=== PATIENT | female | born 1955 | race Caucasian/White ===

== ENCOUNTER 2019-10-24 10:52 | Outpatient (REF) | payer OTHER, SELFPAY ==
--- NOTE | 2019-10-24 09:20 | PAPFT_PTH ---
PATIENT: Colleen Johnson I LOC: [facility] U#:[id number] AGE/SX: 64/F ROOM: RE10/24/[address]: Raquel Bolanos : 1955 BED: DIS: 10/24/2019 SPEC #: [id number] RECD: 10/25/19 12:23 STATUS: YANIQUE REStella #: [id number] SALMA: 10/24/19 09:[address]: Raquel Bolanos DEPT: [facility] Cytology RECD BY: Kamini Vernon ENTERED: 10/25/19 12:24 SP TYPE: PAPFT OTHR DR: Lisa Ta Tissues: 1 - CX/ENDOCX FOR PAP SMEARS Procedures: PAP THIN PREP/[facility] Screening HPV DNA PROBE Comments: [id number]
[2019-10-24 21:32] LABS: Calculated LDL 130 mg/dL (<100); Cholesterol 218 mg/dL (<200); HDL Cholesterol 56 mg/dL (40-60); Triglyceride 160 mg/dL (<150)
== END 2019-10-24 11:12 ==
LOC: NCHCN 10:52
PROVIDERS: PCP Nurse Practitioner Adult Health; Visit Provider Nurse Practitioner Community Health
DX: R63.5 Abnormal weight gain (principal); R53.83 Other fatigue; Z12.4 Encounter for screening for malignant neoplasm of cervix
CPT/HCPCS: 80061; 88142; 84443; 87624

== ENCOUNTER 2021-04-08 12:38 | Outpatient (REF) | payer OTHER, SELFPAY ==
[2021-04-08 21:45] LABS: Abs Immature Grans 0.02 10^3/uL (0.0-0.06); Absolute Basophil Count 0.04 10^3/uL (0.0-0.2); Absolute Eosinophil Count 0.17 10^3/uL (0.0-0.7); Absolute Lymphocyte Count 2.42 10^3/uL (1.2-3.4); Basophils % 0.6; Eosinophils % 2.5; HCT 40.5 % (36.0-46.0); HGB 13.4 g/dL (11.2-15.7); Immature Grans % 0.3; Lymphocytes % 35.3; MCH 31.5 pg (27.0-33.0); MCHC 33.1 % (32.0-36.0); MCV 95.3 fL (80-95); MPV 12.1 fL (8.0-11.0); Monocytes % 5.8; Neutrophils % 55.5; Nucleated RBC 0 %; Platelet Count 244 10^3/uL (130-400); RBC 4.25 10^6/uL (3.93-5.22); RDW 11.9 % (11.7-14.6); RDW-SD 41.2 fL; WBC 6.85 10^3/uL (4.4-10.8)
[2021-04-08 21:57] LABS: ALT 30 U/L (14-59); AST 21 U/L (15-37); Alkaline Phosphatase 88 U/L (46-116); BUN 14 mg/dL (7-18); Bilirubin, Total 0.4 mg/dL (0.2-1.0); CREATININE 0.7 mg/dL (0.55-1.02); Calcium 8.9 mg/dL (8.5-10.1); Chloride 108 mmol/L (98-107); Glucose 93 mg/dL (74-106); Potassium 4.1 mmol/L (3.5-5.1); Sodium 144 mmol/L (136-145)
== END 2021-04-08 12:39 | disposition home or self-care (01) ==
LOC: NCHCN 12:38
PROVIDERS: PCP Nurse Practitioner Adult Health; Visit Provider Nurse Practitioner Community Health
DX: R79.89 Other specified abnormal findings of blood chemistry (principal); L53.8 Other specified erythematous conditions
CPT/HCPCS: 80053; 80061; 81015; 85025

== ENCOUNTER 2024-09-12 14:05 | Outpatient (REF) | payer MEDICARE, SELFPAY ==
[2024-09-12 21:49] LABS: ALT 30 U/L (14-59); AST 20 U/L (15-37); Albumin 3.9 g/dL (3.4-5.0); Alkaline Phosphatase 88 U/L (46-116); Anion Gap 8.6 mmol/L (3-11); BUN 16 mg/dL (7-18); Bilirubin, Total 0.3 mg/dL (0.2-1.0); CO2 26.4 mmol/L (21.0-32.0); CREATININE 0.7 mg/dL (0.55-1.02); Calcium 9.2 mg/dL (8.5-10.1); Calculated LDL 133 mg/dL (<100); Chloride 107 mmol/L (98-107); Cholesterol 233 mg/dL (<200); Estimated GFR 93.56 (mL/min/1.73m2); Glucose 93 mg/dL (74-106); HDL Cholesterol 71 mg/dL (>or=50); Sodium 142 mmol/L (136-145); Total Protein 7.4 g/dL (6.4-8.2); Triglyceride 148 mg/dL (<150)
== END 2024-09-12 14:06 | disposition home or self-care (01) ==
LOC: NCHCN 14:05
PROVIDERS: PCP Nurse Practitioner Adult Health; Visit Provider Nurse Practitioner Family
DX: Z13.220 Encounter for screening for lipoid disorders (principal)
CPT/HCPCS: 80053; 80061